=== PATIENT | male | born 1935 | race Caucasian/White ===

== ENCOUNTER 2016-11-28 19:11 | Observation (INO) ==
[2016-11-28] MEDS ORDERED: Acetaminophen 650 MG RECTAL SUPP RC ONE (19:47)
[2016-11-28] MEDS ORDERED: Dexamethasone 4 MG/ML VIAL IVP ONE (19:47)
--- NOTE | 2016-11-28 19:51 | Anesthesia Progress Note ---
Date of Encounter: 11/28/16 Time of Encounter: 19:38 Anesthesia Note - Note Note: 11/28/16 19:38 Called to ER 29 Stat, Upon arrival patient was unresponsive, Respiratory was bagging patient with 100% O2 . O2 saturation maintained in the 90's throughout intubating attempts. First attempted intubation with 7.5 ETT. Using C-scope, Grade I view was unsuccessful. ETT was too large to pass Through Glottic opening. A mass could be seen distal/behind vocal cords. A second attempt with smaller 6.5 ETT was attempted and was successful. tube taped in place, Bilateral breath sounds present and End tidal Co2 present. Oxygen saturations remained in the mid 90'S.
[2016-11-28] MEDS ORDERED: Pantoprazole 80 MG in 0.9 % Sodium Chloride 50 ML IVPB ONE (19:52)
[2016-11-28 19:56] LABS: Bilirubin,Urine Small (Negative); Blood,Urine Moderate (Negative); Clarity,Urine Cloudy (Clear); Color,Urine Dark Yellow (Yellow); Glucose,Urine (UA) Normal (Normal); Ketones,Urine Trace mg/dL (Negative); Leukocyte Esterase,Urine Moderate (Negative); Nitrite,Urine Negative (Negative); PH,Urine 8.5 pH Units (5.0-8.0); Protein,Urine 100 mg/dL (Neg-Trace); Specific Gravity,Urine 1.022 (1.010-1.025); Urobilinogen,Urine Normal (Normal)
[2016-11-28 19:58] LABS: Bacteria,Urine Many per hpf (None-Few); Squamous Epithelial Cell,Urine Many per lpf (None-Few); WBC,Urine 30-50 per hpf (0-3)
[2016-11-28] MEDS ORDERED: Vancomycin 1,500 MG in D5% in Water 250 ML IVPB ONE (20:00)
[2016-11-28] MEDS: Pantoprazole 40 MG in 0.9 % Sodium Chloride Mini Bag 100 ML IVC SCH (20:22)
[2016-11-28] MEDS: 0.9 % Sodium Chloride 1,000 ML IVC SCH ×2 (20:23→20:37)
[2016-11-28 20:44] LABS: Hematocrit 45.2 % (37.5-50.1); Hemoglobin 14.5 g/dL (12.9-16.9); Mean Corpuscular HGB Conc 32.1 g/dL (31.6-35.5); Mean Corpuscular Hemoglobin 28.5 pg (28.0-33.3); Mean Corpuscular Volume 88.8 fL (83.0-100.0); Mean Platelet Volume 10.1 fL (9.4-12.4); Nucleated Red Blood Cells 0.1 /100 WBC (0); Platelet Count 126 K/mcL (140-400); Red Blood Count 5.09 M/mcL (4.19-5.50); Red Cell Distribution Width 13.3 % (11.5-14.5)
[2016-11-28 20:51] LABS: INR 1.3; Prothrombin Time 13.9 Seconds (9.4-12.1)
[2016-11-28 20:53] LABS: Activated Partial Thrombo Time 29.3 Seconds (26.0-36.0)
[2016-11-28 20:58] LABS: Albumin 2.4 g/dL (3.5-5.0); Albumin/Globulin Ratio 0.8 (1.1-2.2); Bilirubin,Direct 0.2 mg/dL (0.0-0.5); Bilirubin,Indirect 0.2 mg/dL (0.0-1.2); Bilirubin,Total 0.4 mg/dL (0.2-1.2); Globulin 2.9 g/dL (2.4-3.5); Magnesium 1.6 mg/dL (1.6-2.6); Phosphorous 1.1 mg/dL (2.3-4.7); Potassium 2.9 mEq/L (3.5-4.5); Total Protein 5.3 g/dL (6.0-8.3)
[2016-11-28] MEDS ORDERED: *HR* Morphine 2 MG/ML SYRINGE IVP ONE (20:59)
[2016-11-28] MEDS ORDERED: *HR* LORazepam 2 MG/ML VIAL IVP ONE ×3 (21:00→23:03)
[2016-11-28 21:01] LABS: Lymphocytes # 0.9 K/mcL (0.6-4.6); Monocytes # 0.3 K/mcL (0.0-1.3); Neutrophils # 13.9 K/mcL (1.6-8.9)
[2016-11-28 21:02] LABS: Platelet Estimate Slight Decrease (Normal)
[2016-11-28] MEDS ORDERED: *HR* Morphine 2 MG/ML SYRINGE IVP PRN ×2 (21:23→22:14)
[2016-11-28] MEDS ORDERED: *HR* Morphine 10 MG/ML VIAL IVP PRN (22:28)
--- NOTE | 2016-11-29 00:22 | Emergency Department Note ---
Disposition Clinical Impression: Respiratory failure Qualifiers: Chronicity: acute Respiratory failure complication: hypoxia Qualified Code(s): J96.01 - Acute respiratory failure with hypoxia Disposition: Home, Self-Care Condition: Critical General Adult HPI - General Chief complaint: ED Fever Stated complaint: SEPTIC Nursing Notes Reviewed: Yes Vital Signs Reviewed: Yes - History of Present Illness HPI Narrative: 81-year-old male with a history of Parkinson's disease as well as other significant comorbidities who has baseline of minimal responsiveness and resides at a local nursing facility. Presents today febrile with concern for aspiration and respiratory failure as well as GI hemorrhage. The patient actually was found to be febrile at a local nursing facility with a temperature of 105. He had rattling coarse lung sounds and was vomiting GI hemorrhage contents. On arrival here he was unresponsive, to Neck with poor respiratory effort and pending overt respiratory failure. He was a DNR [facility]. His POA was here and present and stated that he was with intubation. Pain Scale: 0 - Related Data Allergies Allergy/AdvReac Type Severity Reaction Status Date / Time No Known Allergies Allergy Verified 11/28/16 19:14 All systems ED: reviewed and negative except as stated. Past Medical History - Past Medical History Medical history: Reports: diabetes, hyperlipidemia, hypertension, myocardial infarction Psychiatric history: Reports: no psych history - Social History Smoking Status: Unknown if ever smoked Smokeless Tobacco Status: No Alcohol use: Reports: unknown Drug use: Reports: unknown Physical Exam Unresponsive GCS 3 Gurgling respirations with blood in the oropharynx Tachycardic rate Lungs are diminished, rhonchi bilaterally, hypoxia Abdomen is soft and nontender Extremities are warm and dry The patient has no purposeful movement and is unresponsive - ENT ENT exam: normal exam - Neck Neck exam: Present: normal inspection - Respiratory Respiratory exam: Present: accessory muscle use Course Vital Signs Temperature 101.3 F H 11/28/16 19:16 Pulse Rate 107 11/28/16 19:16 Respiratory Rate 12 11/28/16 19:16 Blood Pressure 103/54 11/28/16 19:16 O2 Sat by Pulse Oximetry 91 11/28/16 19:16 Temperature 101.3 F H 11/28/16 19:16 Pulse Rate 88 11/28/16 23:56 Respiratory Rate 12 11/28/16 23:24 Blood Pressure 78/46 11/28/16 23:56 O2 Sat by Pulse Oximetry 90 11/28/16 23:56 Oxygen Delivery Oxygen Delivery Room Air Medical Decision Making - MDM Narrative Medical decision making narrative: I did have a discussion with the family about their personal wishes regarding advanced airway placement and resuscitation and cooperatively they decided that they would like to proceed with airway measures. The patient did have hypotension and ultimately it was decided to pursue rapid sequence intubation with ketamine as well as rocuronium. Ketamine was utilized as an induction agent as the patient had signs of septic shock. I did not want Parris intubation hypotension. Ultimately after administration of rocuronium as well as ketamine we proceeded with oxygenation with bag mask ventilation. The patient was easily ventilated. Blood was suctioned from the posterior oropharynx. The patient's oxygenation was 100%. Blood scope in addition attempt was performed with direct visualization and grade 1 view however attempts to pass an endotracheal tube were unsuccessful due to her underlying subglottic mass which is visualized on kaleidoscope camera. After 2 attempts at direct intubation without any hypoxia utilizing the kaleidoscope and after attempts administration of both glucagon and lidocaine directly at the vocal cords and attempt to ease vocal cord spasm I did request anesthesia to the bedside in a stat fashion and proceeded to fall the difficult airway algorithm. We did attempt to place a bougie after attempts at utilizing smaller endotracheal tubes and even a bougie would not pass. Additionally we tried manipulation of the endotracheal tube, utilizing extremely small endotracheal tube and secondary doses of paralytics. 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 A cric care was summoned to the bedside and I requested additional ER attending backup. Anesthesia was present at the bedside and their initial attempts to place an inch tracheal tube were not successful. They recognized also that there was evidence of subglottic mass. After manipulation of the trachea with pressure and by manipulating the mass anesthesia was able to place a 6.0 endotracheal tube. The patient had no hypoxia during induction or intubation attempts. Broad-spectrum antibiotics were initiated. Pancultures are obtained. Chest x-ray shows multilobar pneumonia. After prolonged discussion with the family they proceeded with palliative decisions. They requested a terminal extubation. The power of collections attorney was present as well as multiple family members all requesting terminal extubation. They feel the patient suffered long enough. The patient was terminally extubated and with the help of on-call hospice I did lay's palliative orders. We will proceed with admission for palliative services. Prior to terminal extubation and prior to comfort care decisions I did administer Decadron for presumed subglottic swelling. The family did refuse advanced imaging. The patient be admitted for comfort care and for hospice efforts. - Medical Records Medical records reviewed: Yes I reviewed the patient's medical records. - Lab Data Lab results reviewed: Yes I reviewed the patient's lab results. Result diagrams: 11/28/16 20:32 11/28/16 20:32 Lab Results 11/28/16 11/28/16 11/28/16 Range/Units 19:15 19:42 20:32 WBC (4.3-11.1) K/mcL RBC (4.19-5.50) M/mcL Hgb (12.9-16.9) g/dL Hct (37.5-50.1) % MCV (83.0-100.0) fL MCH (28.0-33.3) pg MCHC (31.6-35.5) g/dL RDW (11.5-14.5) % Plt Count (140-400) K/mcL MPV (9.4-12.4) fL Seg Neutrophils % % Band Neutrophils % (0-4) % Lymphocytes % % Monocytes % % Neutrophils # (1.6-8.9) K/mcL Lymphocytes # (0.6-4.6) K/mcL Monocytes # (0.0-1.3) K/mcL Nucleated RBCs/100 WBC (0) /100 WBC Platelet Estimate (Normal) PT (9.4-12.1) Seconds INR APTT (26.0-36.0) Seconds Sodium (136-145) mEq/L Potassium (3.5-4.5) mEq/L Chloride (98-109) mEq/L Carbon Dioxide (19-29) mEq/L BUN (8-26) mg/dL Creatinine (0.72-1.25) mg/dL Est GFR ( Amer) (> 60) Est GFR (Non-Af Amer) (> 60) BUN/Creatinine Ratio (6-26) Glucose (70-99) mg/dL POC Glucose 146 H (58-89) Calculated Osmolality (280-300) Lactic Acid (0.5-2.2) mmol/L Calcium (8.6-10.8) mg/dL Phosphorus (2.3-4.7) mg/dL Magnesium (1.6-2.6) mg/dL Total Bilirubin (0.2-1.2) mg/dL Direct Bilirubin (0.0-0.5) mg/dL Indirect Bilirubin (0.0-1.2) mg/dL AST (5-34) Units/L ALT (0-55) Units/L Alkaline Phosphatase (38-126) Units/L Troponin I (0-0.03) ng/mL B-Natriuretic Peptide 294 H (0-100) pg/mL Serum Total Protein (6.0-8.3) g/dL Albumin (3.5-5.0) g/dL Globulin (2.4-3.5) g/dL Albumin/Globulin Ratio (1.1-2.2) Urine Color Dark Yellow (Yellow) Urine Clarity Cloudy A (Clear) Urine pH 8.5 H (5.0-8.0) pH Units Ur Specific [place] 1.022 (1.010-1.025) Urine Protein 100 H (Neg-Trace) mg/dL Urine Glucose (UA) Normal (Normal) mg/dL Urine Ketones Trace H (Negative) mg/dL Urine Blood Moderate H (Negative) Urine Nitrite Negative (Negative) Urine Bilirubin Small H (Negative) Urine Urobilinogen Normal (Normal) mg/dL Ur Leukocyte Esterase Moderate H (Negative) Urine Microscopic RBC 5-15 H (0-3) per hpf Urine Microscopic WBC 30-50 H (0-3) per hpf Ur Squamous Epith Cells Many H (None-Few) per lpf Urine Bacteria Many H (None-Few) per hpf Hyaline Casts Test Not Performed Ur Culture Indicated? YES A (NO) Blood Type Antibody Screen 11/28/16 11/28/16 11/28/16 Range/Units 20:32 20:32 20:32 WBC 15.1 H (4.3-11.1) K/mcL RBC 5.09 (4.19-5.50) M/mcL Hgb 14.5 (12.9-16.9) g/dL Hct 45.2 (37.5-50.1) % MCV 88.8 (83.0-100.0) fL MCH 28.5 (28.0-33.3) pg MCHC 32.1 (31.6-35.5) g/dL RDW 13.3 (11.5-14.5) % Plt Count 126 L (140-400) K/mcL MPV 10.1 (9.4-12.4) fL Seg Neutrophils % 74.0 % Band Neutrophils % 18.0 H (0-4) % Lymphocytes % 6.0 % Monocytes % 2.0 % Neutrophils # 13.9 H (1.6-8.9) K/mcL Lymphocytes # 0.9 (0.6-4.6) K/mcL Monocytes # 0.3 (0.0-1.3) K/mcL Nucleated RBCs/100 WBC 0.1 H (0) /100 WBC Platelet Estimate Slight Decrease L (Normal) PT 13.9 H (9.4-12.1) Seconds INR 1.3 APTT 29.3 (26.0-36.0) Seconds Sodium 142 (136-145) mEq/L Potassium 2.9 L (3.5-4.5) mEq/L Chloride 110 H (98-109) mEq/L Carbon Dioxide 21 (19-29) mEq/L BUN 25 (8-26) mg/dL Creatinine 1.89 H (0.72-1.25) mg/dL Est GFR ( Amer) 42 L (> 60) Est GFR (Non-Af Amer) 34 L (> 60) BUN/Creatinine Ratio 13 (6-26) Glucose 165 H (70-99) mg/dL POC Glucose (58-89) Calculated Osmolality 302 H (280-300) Lactic Acid (0.5-2.2) mmol/L Calcium 8.0 L (8.6-10.8) mg/dL Phosphorus 1.1 L (2.3-4.7) mg/dL Magnesium 1.6 (1.6-2.6) mg/dL Total Bilirubin 0.4 (0.2-1.2) mg/dL Direct Bilirubin 0.2 (0.0-0.5) mg/dL Indirect Bilirubin 0.2 (0.0-1.2) mg/dL AST 24 (5-34) Units/L ALT 14 (0-55) Units/L Alkaline Phosphatase 95 (38-126) Units/L Troponin I (0-0.03) ng/mL B-Natriuretic Peptide (0-100) pg/mL Serum Total Protein 5.3 L (6.0-8.3) g/dL Albumin 2.4 L (3.5-5.0) g/dL Globulin 2.9 (2.4-3.5) g/dL Albumin/Globulin Ratio 0.8 L (1.1-2.2) Urine Color (Yellow) Urine Clarity (Clear) Urine pH (5.0-8.0) pH Units Ur Specific [place] (1.010-1.025) Urine Protein (Neg-Trace) mg/dL Urine Glucose (UA) (Normal) mg/dL Urine Ketones (Negative) mg/dL Urine Blood (Negative) Urine Nitrite (Negative) Urine Bilirubin (Negative) Urine Urobilinogen (Normal) mg/dL Ur Leukocyte Esterase (Negative) Urine Microscopic RBC (0-3) per hpf Urine Microscopic WBC (0-3) per hpf Ur Squamous Epith Cells (None-Few) per lpf Urine Bacteria (None-Few) per hpf Hyaline Casts Ur Culture Indicated? (NO) Blood Type Antibody Screen 11/28/16 11/28/16 11/28/16 Range/Units 20:32 20:32 20:32 WBC (4.3-11.1) K/mcL RBC (4.19-5.50) M/mcL Hgb (12.9-16.9) g/dL Hct (37.5-50.1) % MCV (83.0-100.0) fL MCH (28.0-33.3) pg MCHC (31.6-35.5) g/dL RDW (11.5-14.5) % Plt Count (140-400) K/mcL MPV (9.4-12.4) fL Seg Neutrophils % % Band Neutrophils % (0-4) % Lymphocytes % % Monocytes % % Neutrophils # (1.6-8.9) K/mcL Lymphocytes # (0.6-4.6) K/mcL Monocytes # (0.0-1.3) K/mcL Nucleated RBCs/100 WBC (0) /100 WBC Platelet Estimate (Normal) PT (9.4-12.1) Seconds INR APTT (26.0-36.0) Seconds Sodium (136-145) mEq/L Potassium (3.5-4.5) mEq/L Chloride (98-109) mEq/L Carbon Dioxide (19-29) mEq/L BUN (8-26) mg/dL Creatinine (0.72-1.25) mg/dL Est GFR ( Amer) (> 60) Est GFR (Non-Af Amer) (> 60) BUN/Creatinine Ratio (6-26) Glucose (70-99) mg/dL POC Glucose (58-89) Calculated Osmolality (280-300) Lactic Acid 4.8 H* (0.5-2.2) mmol/L Calcium (8.6-10.8) mg/dL Phosphorus (2.3-4.7) mg/dL Magnesium (1.6-2.6) mg/dL Total Bilirubin (0.2-1.2) mg/dL Direct Bilirubin (0.0-0.5) mg/dL Indirect Bilirubin (0.0-1.2) mg/dL AST (5-34) Units/L ALT (0-55) Units/L Alkaline Phosphatase (38-126) Units/L Troponin I 0.06 H* (0-0.03) ng/mL B-Natriuretic Peptide (0-100) pg/mL Serum Total Protein (6.0-8.3) g/dL Albumin (3.5-5.0) g/dL Globulin (2.4-3.5) g/dL Albumin/Globulin Ratio (1.1-2.2) Urine Color (Yellow) Urine Clarity (Clear) Urine pH (5.0-8.0) pH Units Ur Specific [place] (1.010-1.025) Urine Protein (Neg-Trace) mg/dL Urine Glucose (UA) (Normal) mg/dL Urine Ketones (Negative) mg/dL Urine Blood (Negative) Urine Nitrite (Negative) Urine Bilirubin (Negative) Urine Urobilinogen (Normal) mg/dL Ur Leukocyte Esterase (Negative) Urine Microscopic RBC (0-3) per hpf Urine Microscopic WBC (0-3) per hpf Ur Squamous Epith Cells (None-Few) per lpf Urine Bacteria (None-Few) per hpf Hyaline Casts Ur Culture Indicated? (NO) Blood Type O NEGATIVE Antibody Screen NEGATIVE - Radiology Data Radiology results reviewed: Yes I reviewed the patient's radiology results. - EKG Data EKG #1 EKG results narrative: EKG shows sinus tachycardia with nonspecific ST segment changes Critical Care Time Total Critical Care Time: 31 Attestation: Greater than 31 minutes was spent participating in the active resuscitation of this acutely ill and dying male of GI hemorrhage and respiratory failure. Vehicle care time was excluding billable procedures
--- NOTE | 2016-11-29 00:26 | Emergency Department Note ---
Disposition Clinical Impression: Respiratory failure Disposition: Home, Self-Care Condition: Critical General Adult HPI - General Chief complaint: ED Fever Stated complaint: SEPTIC - History of Present Illness Pain Scale: 0 - Related Data Allergies Allergy/AdvReac Type Severity Reaction Status Date / Time No Known Allergies Allergy Verified 11/28/16 19:14 Past Medical History - Past Medical History Medical history: Reports: diabetes, hyperlipidemia, hypertension, myocardial infarction Psychiatric history: Reports: no psych history - Social History Smoking Status: Unknown if ever smoked Smokeless Tobacco Status: No Alcohol use: Reports: unknown Drug use: Reports: unknown Course Vital Signs Temperature 101.3 F H 11/28/16 19:16 Pulse Rate 107 11/28/16 19:16 Respiratory Rate 12 11/28/16 19:16 Blood Pressure 103/54 11/28/16 19:16 O2 Sat by Pulse Oximetry 91 11/28/16 19:16 Temperature 96.9 F L 11/29/16 00:55 Pulse Rate 84 11/29/16 00:55 Respiratory Rate 8 11/29/16 00:55 Blood Pressure 74/47 11/29/16 00:55 O2 Sat by Pulse Oximetry 81 11/29/16 00:55 Oxygen Delivery Oxygen Delivery Room Air Procedures - Intubation Time out performed: No sedative: Etomidate paralytic: Succinylcholine Laryngoscope: fiber optic video scope Assist Device Used: Bougie ET Tube Size: 7.5 ET Tube Uncuffed: Yes Intubation Complications: unable to intubate Additional Comments: Emergent intubation. Patient was initially sedated with ketamine. And etomidate. Patient was easy to ventilate with a bag valve mask. Cords were visualized with the glide scope. Mouth was suctioned due to emesis. The ET tube was unable to pass through the vocal cords. This was tried several times with no success. Lidocaine was was placed down the ET tube. The ET tube still would not pass. The tube was moved into different locations and chronic pressure was used with no advancement. There appeared to be a mass directly past the vocal cords. Succinylcholine was given to attempt to help facilitate with paralysis. However patient was not moving at that time did not appear to have any muscular tone. During intubation attempts patient's oxygen saturation never dropped below the 90s level. We were able to ventilate appropriately with the bag valve mask with no difficulty. We attempted to pass a bougie through patient's vocal cords with no success. Anesthesia was paged to come assist. After 2 or 3 attempts they were able to place a 6-1/2 ET tube. The patient had equal bilateral lung sounds at that time. Medical Decision Making - Lab Data Result diagrams: 11/28/16 20:32 11/28/16 20:32 Lab Results 11/28/16 11/28/16 11/28/16 Range/Units 19:15 19:42 20:32 WBC (4.3-11.1) K/mcL RBC (4.19-5.50) M/mcL Hgb (12.9-16.9) g/dL Hct (37.5-50.1) % MCV (83.0-100.0) fL MCH (28.0-33.3) pg MCHC (31.6-35.5) g/dL RDW (11.5-14.5) % Plt Count (140-400) K/mcL MPV (9.4-12.4) fL Seg Neutrophils % % Band Neutrophils % (0-4) % Lymphocytes % % Monocytes % % Neutrophils # (1.6-8.9) K/mcL Lymphocytes # (0.6-4.6) K/mcL Monocytes # (0.0-1.3) K/mcL Nucleated RBCs/100 WBC (0) /100 WBC Platelet Estimate (Normal) PT (9.4-12.1) Seconds INR APTT (26.0-36.0) Seconds Sodium (136-145) mEq/L Potassium (3.5-4.5) mEq/L Chloride (98-109) mEq/L Carbon Dioxide (19-29) mEq/L BUN (8-26) mg/dL Creatinine (0.72-1.25) mg/dL Est GFR ( Amer) (> 60) Est GFR (Non-Af Amer) (> 60) BUN/Creatinine Ratio (6-26) Glucose (70-99) mg/dL POC Glucose 146 H (58-89) Calculated Osmolality (280-300) Lactic Acid (0.5-2.2) mmol/L Calcium (8.6-10.8) mg/dL Phosphorus (2.3-4.7) mg/dL Magnesium (1.6-2.6) mg/dL Total Bilirubin (0.2-1.2) mg/dL Direct Bilirubin (0.0-0.5) mg/dL Indirect Bilirubin (0.0-1.2) mg/dL AST (5-34) Units/L ALT (0-55) Units/L Alkaline Phosphatase (38-126) Units/L Troponin I (0-0.03) ng/mL B-Natriuretic Peptide 294 H (0-100) pg/mL Serum Total Protein (6.0-8.3) g/dL Albumin (3.5-5.0) g/dL Globulin (2.4-3.5) g/dL Albumin/Globulin Ratio (1.1-2.2) Urine Color Dark Yellow (Yellow) Urine Clarity Cloudy A (Clear) Urine pH 8.5 H (5.0-8.0) pH Units Ur Specific [place] 1.022 (1.010-1.025) Urine Protein 100 H (Neg-Trace) mg/dL Urine Glucose (UA) Normal (Normal) mg/dL Urine Ketones Trace H (Negative) mg/dL Urine Blood Moderate H (Negative) Urine Nitrite Negative (Negative) Urine Bilirubin Small H (Negative) Urine Urobilinogen Normal (Normal) mg/dL Ur Leukocyte Esterase Moderate H (Negative) Urine Microscopic RBC 5-15 H (0-3) per hpf Urine Microscopic WBC 30-50 H (0-3) per hpf Ur Squamous Epith Cells Many H (None-Few) per lpf Urine Bacteria Many H (None-Few) per hpf Hyaline Casts Test Not Performed Ur Culture Indicated? YES A (NO) Blood Type Antibody Screen 11/28/16 11/28/16 11/28/16 Range/Units 20:32 20:32 20:32 WBC 15.1 H (4.3-11.1) K/mcL RBC 5.09 (4.19-5.50) M/mcL Hgb 14.5 (12.9-16.9) g/dL Hct 45.2 (37.5-50.1) % MCV 88.8 (83.0-100.0) fL MCH 28.5 (28.0-33.3) pg MCHC 32.1 (31.6-35.5) g/dL RDW 13.3 (11.5-14.5) % Plt Count 126 L (140-400) K/mcL MPV 10.1 (9.4-12.4) fL Seg Neutrophils % 74.0 % Band Neutrophils % 18.0 H (0-4) % Lymphocytes % 6.0 % Monocytes % 2.0 % Neutrophils # 13.9 H (1.6-8.9) K/mcL Lymphocytes # 0.9 (0.6-4.6) K/mcL Monocytes # 0.3 (0.0-1.3) K/mcL Nucleated RBCs/100 WBC 0.1 H (0) /100 WBC Platelet Estimate Slight Decrease L (Normal) PT 13.9 H (9.4-12.1) Seconds INR 1.3 APTT 29.3 (26.0-36.0) Seconds Sodium 142 (136-145) mEq/L Potassium 2.9 L (3.5-4.5) mEq/L Chloride 110 H (98-109) mEq/L Carbon Dioxide 21 (19-29) mEq/L BUN 25 (8-26) mg/dL Creatinine 1.89 H (0.72-1.25) mg/dL Est GFR ( Amer) 42 L (> 60) Est GFR (Non-Af Amer) 34 L (> 60) BUN/Creatinine Ratio 13 (6-26) Glucose 165 H (70-99) mg/dL POC Glucose (58-89) Calculated Osmolality 302 H (280-300) Lactic Acid (0.5-2.2) mmol/L Calcium 8.0 L (8.6-10.8) mg/dL Phosphorus 1.1 L (2.3-4.7) mg/dL Magnesium 1.6 (1.6-2.6) mg/dL Total Bilirubin 0.4 (0.2-1.2) mg/dL Direct Bilirubin 0.2 (0.0-0.5) mg/dL Indirect Bilirubin 0.2 (0.0-1.2) mg/dL AST 24 (5-34) Units/L ALT 14 (0-55) Units/L Alkaline Phosphatase 95 (38-126) Units/L Troponin I (0-0.03) ng/mL B-Natriuretic Peptide (0-100) pg/mL Serum Total Protein 5.3 L (6.0-8.3) g/dL Albumin 2.4 L (3.5-5.0) g/dL Globulin 2.9 (2.4-3.5) g/dL Albumin/Globulin Ratio 0.8 L (1.1-2.2) Urine Color (Yellow) Urine Clarity (Clear) Urine pH (5.0-8.0) pH Units Ur Specific [place] (1.010-1.025) Urine Protein (Neg-Trace) mg/dL Urine Glucose (UA) (Normal) mg/dL Urine Ketones (Negative) mg/dL Urine Blood (Negative) Urine Nitrite (Negative) Urine Bilirubin (Negative) Urine Urobilinogen (Normal) mg/dL Ur Leukocyte Esterase (Negative) Urine Microscopic RBC (0-3) per hpf Urine Microscopic WBC (0-3) per hpf Ur Squamous Epith Cells (None-Few) per lpf Urine Bacteria (None-Few) per hpf Hyaline Casts Ur Culture Indicated? (NO) Blood Type Antibody Screen 11/28/16 11/28/16 11/28/16 Range/Units 20:32 20:32 20:32 WBC (4.3-11.1) K/mcL RBC (4.19-5.50) M/mcL Hgb (12.9-16.9) g/dL Hct (37.5-50.1) % MCV (83.0-100.0) fL MCH (28.0-33.3) pg MCHC (31.6-35.5) g/dL RDW (11.5-14.5) % Plt Count (140-400) K/mcL MPV (9.4-12.4) fL Seg Neutrophils % % Band Neutrophils % (0-4) % Lymphocytes % % Monocytes % % Neutrophils # (1.6-8.9) K/mcL Lymphocytes # (0.6-4.6) K/mcL Monocytes # (0.0-1.3) K/mcL Nucleated RBCs/100 WBC (0) /100 WBC Platelet Estimate (Normal) PT (9.4-12.1) Seconds INR APTT (26.0-36.0) Seconds Sodium (136-145) mEq/L Potassium (3.5-4.5) mEq/L Chloride (98-109) mEq/L Carbon Dioxide (19-29) mEq/L BUN (8-26) mg/dL Creatinine (0.72-1.25) mg/dL Est GFR ( Amer) (> 60) Est GFR (Non-Af Amer) (> 60) BUN/Creatinine Ratio (6-26) Glucose (70-99) mg/dL POC Glucose (58-89) Calculated Osmolality (280-300) Lactic Acid 4.8 H* (0.5-2.2) mmol/L Calcium (8.6-10.8) mg/dL Phosphorus (2.3-4.7) mg/dL Magnesium (1.6-2.6) mg/dL Total Bilirubin (0.2-1.2) mg/dL Direct Bilirubin (0.0-0.5) mg/dL Indirect Bilirubin (0.0-1.2) mg/dL AST (5-34) Units/L ALT (0-55) Units/L Alkaline Phosphatase (38-126) Units/L Troponin I 0.06 H* (0-0.03) ng/mL B-Natriuretic Peptide (0-100) pg/mL Serum Total Protein (6.0-8.3) g/dL Albumin (3.5-5.0) g/dL Globulin (2.4-3.5) g/dL Albumin/Globulin Ratio (1.1-2.2) Urine Color (Yellow) Urine Clarity (Clear) Urine pH (5.0-8.0) pH Units Ur Specific [place] (1.010-1.025) Urine Protein (Neg-Trace) mg/dL Urine Glucose (UA) (Normal) mg/dL Urine Ketones (Negative) mg/dL Urine Blood (Negative) Urine Nitrite (Negative) Urine Bilirubin (Negative) Urine Urobilinogen (Normal) mg/dL Ur Leukocyte Esterase (Negative) Urine Microscopic RBC (0-3) per hpf Urine Microscopic WBC (0-3) per hpf Ur Squamous Epith Cells (None-Few) per lpf Urine Bacteria (None-Few) per hpf Hyaline Casts Ur Culture Indicated? (NO) Blood Type O NEGATIVE Antibody Screen NEGATIVE
[2016-11-29 00:56] VITALS: BP 74/47
[2016-11-29] MEDS ORDERED: Naloxone 0.4 MG/ML INJ IVP PRN (01:00)
--- NOTE | 2016-11-29 01:17 | Internal Med History&Physical ---
Date of Encounter: 11/29/16 Time of Encounter: 00:10 Assessment and Plan (1) Goals of care, counseling/discussion Current visit: Yes Status: Acute Patient has a family requested hospice care. Will keep patient on comfort care. Pain management. Symptomatic treatment. Consult palliative care in a.m. (2) Respiratory failure Current visit: Yes Status: Acute Due to pneumonia. No further treatment per family request. Qualifiers: Chronicity: acute Respiratory failure complication: hypoxia Qualified Code(s): J96.01 - Acute respiratory failure with hypoxia Internal Medicine - H&P: HPI Chief complaint: Fever and altered mental status Admitted From: Long-term Nursing Facility Plans for Post Hospital Care: at Medical Facility History of present illness: Mr. Nj is a 81 year old male who was sent to ER from intermediate for fever and altered mental status. He has a minimal response when he presents to ER. Chest x-ray shows pneumonia. Intubation has been done in emergency room. Finally, patient's family and guardian requested palliative care and comfort care only. Terminal extubation has been done by ER doctor per family request. Patient is admitted for hospice care. I discussed with patient's guardian and also his daughter Ms Ruslan Charlton, and was confirmed patient's family just want comfort care, now antibiotic, no IV fluid. Will give patient pain control and symptoms treatment. Patient was placed on DNR CC. Past Med Surg Social Fam HX - Past Medical History Medical history: diabetes, hyperlipidemia, hypertension, myocardial infarction Psychiatric history: no psych history - Social History Smoking Status: Unknown if ever smoked Smokeless Tobacco Status: No Alcohol use: unknown Drug use: unknown Internal Medicine - H&P: Meds Allergies No Known Allergies Allergy (Verified 11/28/16 19:14) All Systems PM: A 10-system review of systems was performed and is negative for pertinent findings except as documented above in the HPI. - Constitutional Vitals: Temp Pulse Resp BP Pulse Ox 96.9 F L 84 8 74/47 81 11/29/16 00:55 11/29/16 00:55 11/29/16 00:55 11/29/16 00:55 11/29/16 00:55 General appearance: Present: A&O X 0 Exam: Nonresponsive - Head Head exam: Present: atraumatic, normocephalic - Eye Eye exam: Present: PERRL, conjuntiva pink, sclera anicteric Pupils: Present: PERRL - Neck Neck exam general surgery: Present: supple, trachea midline. Absent: lymphadenopathy - Respiratory Respiratory exam: Present: CTAB, rhonchi, wheezes. Absent: accessory muscle use , rales Additional comments: Slow and shallow breathing, wheezes and rhonchi bilaterally - Cardiovascular Cardiovascular exam: Present: RRR, +S1, +S2. Absent: diastolic murmur, gallop, rubs, systolic murmur - GI/Abdominal GI/Abdominal exam: Present: normal bowel sounds, soft, no peritoneal signs. Absent: distended, tenderness - Extremities Exam Extremities exam: Present: warm, radial pulses palpable and symetrical. Absent : calf tenderness, cyanotic, pedal edema - Neurological Exam Neurological exam: Present: CN II-XII intact, oriented X3, no focal deficits. Absent: pronater drift, facial droop, speech deficit - Skin Skin exam: Present: dry, intact Internal Med - H&P Results - Labs CBC & Chem 7: 11/28/16 20:32 11/28/16 20:32 - VTE Reasons for not Prescribing Prophylaxis: Refused by patient
[2016-11-29] MEDS: Atropine Sulfate 1% 40 DROP/2 ML BOTTLE SL PRN ×3 (01:38→05:48)
[2016-11-29] MEDS: Pantoprazole 40 MG in 0.9 % Sodium Chloride Mini Bag 100 ML IVC SCH ×2 (01:39→05:49)
[2016-11-29 07:26] LABS: Acinetobacter baumannii by PCR Not Detected (Not Detect); Candida albicans by PCR Not Detected (Not Detect); Candida glabrata by PCR Not Detected (Not Detect); Candida krusei by PCR Not Detected (Not Detect); Candida parapsilosis by PCR Not Detected (Not Detect); Candida tropicalis by PCR Not Detected (Not Detect); Enterococcus by PCR Not Detected (Not Detect); Escherichia coli by PCR Not Detected (Not Detect); Klebsiella oxytoca by PCR Not Detected (Not Detect); Klebsiella pneumoniae by PCR Not Detected (Not Detect); Pseudomonas aeruginosa by PCR Not Detected (Not Detect); Serratia marcescens by PCR Not Detected (Not Detect); Staphylococcus aureus by PCR Not Detected (Not Detect); Streptococcus agalactiae(B)PCR Not Detected (Not Detect); Streptococcus by PCR Not Detected (Not Detect); Streptococcus pneumoniae PCR Not Detected (Not Detect); Streptococcus pyogenes (A) PCR Not Detected (Not Detect); blaKPC Carbapenem-Resist Gene Not Detected (Not Detect)
[2016-11-29] MEDS ORDERED: *HR* Succinylcholine 200 MG/10 ML VIAL IVP ONE (07:39)
--- NOTE | 2016-11-29 09:44 | Palliative - Consult Note ---
<David Ibarra M - Last Filed: 11/29/16 09:49> Date of Encounter: 11/29/16 Time of Encounter: 09:36 - Assessment and Plan (1) Goals of care, counseling/discussion Status: Acute Assessment and plan: Patient's CODE STATUS is DNR CC. Patient was terminally extubated in the emergency department. Family's initial impression was that patient would have minutes to hours to live. Patient has exceeded these expectations but the family's understanding of disease process has been addressed and they understand that he may even stabilize. Goals of care at this time are to keep the patient comfortable until he passes. The patient will be transitioned over to inpatient hospice. (2) Respiratory failure Status: Acute Assessment and plan: Multifocal pneumonia to be treated with comfort care and no IV fluids or antibiotics per family's wishes. Qualifiers: Chronicity: acute Respiratory failure complication: hypoxia Qualified Code(s): J96.01 - Acute respiratory failure with hypoxia Palliative-CN HPI - Data of Consult Patient: new to practice Consult date: 11/29/16 Requesting Physician: Luz Marina Perez MD Primary Care Provider: PCP NO - Consult Narrative Palliative Care/Comfort Measures: Hospice care Reason for consult: consider for hospice care History of present illness: Mr. Nj is an 81-year-old male who was admitted overnight to the hospitalist service. Patient presented from a [facility] to the emergency department with fever, altered mental status, respiratory distress. Patient is minimally responsive when he presented to the ER with chest x-ray concerning for pneumonia. Patient underwent intubation. Patient's guardian /family arrived and discussed wish for comfort care. It appears that significant conversations were had a nose decided the patient was to be terminally extubated. Currently the patient is resting in bed minimally responsive with occasional apneic episodes. Discussed overall course with family. They would like to have the patient admitted to hospice service. They do not want interventions including antibiotics or fluids. CC: Luz Marina Perez MD Past Med Surg Social Fam HX - Past Medical History Medical history: diabetes, hyperlipidemia, hypertension, myocardial infarction Psychiatric history: no psych history - Social History Smoking Status: Unknown if ever smoked Smokeless Tobacco Status: No Alcohol use: unknown Drug use: unknown Medications and Allergies Aspirin 81 mg PO DAILY 11/29/16 [History] Cyclosporine [Restasis] 1 drop BOTH EYES BID 11/29/16 [History] Docusate [Colace] 100 mg PO BID 11/29/16 [History] Erythromycin OPTH Oint 1 appl BOTH EYES TID 11/29/16 [History] Folic Acid 1 mg PO DAILY 11/29/16 [History] Furosemide [Lasix] 20 mg PO DAILY 11/29/16 [History] Loratadine [Allergy Relief] 10 mg PO DAILY 11/29/16 [History] Multivitamin [One Daily Essential] 1 tab PO DAILY 11/29/16 [History] Allergies No Known Allergies Allergy (Verified 11/28/16 19:14) ROS unobtainable: due to mental status Palliative Care-Exam - Constitutional Vitals: Temp Pulse Resp BP Pulse Ox 96.9 F L 84 8 74/47 81 11/29/16 00:55 11/29/16 00:55 11/29/16 00:55 11/29/16 00:55 11/29/16 00:55 Exam: General: Patient with decreased respirations, overtly rhonchorous breath sounds. Occasional episodes of apnea. Minimally responsive. Head: atraumatic, normocephalic HEENT: Dry mucous membranes Cardiovascular: Regular rate and rhythm. No murmurs rubs or gallops. Respiratory diffuse rhonchorous breath sounds, wheezing, rales. Abdomen: Soft nontender palpation, no guarding, no rebound Extremities: No edema, no deformities, no mottling Skin: No mottling, cool, dry, no evidence of rash or abrasion. Neuro: Eyes closed, no response to mild painful stimuli. Internal Medicine - CN: Reslt - Labs CBC & Chem 7: 11/28/16 20:32 11/28/16 20:32 - ABG Interpretation ABG results: PT/INR, D-dimer PT 13.9 Seconds (9.4-12.1) H 11/28/16 20:32 Consult Discharge Plan - Plan Referrals: NO,PCP [Primary Care Provider] - Palliative Quality Palliative Quality: Screen for Code Status: Yes, Screen for Goals of Care: Yes, Screen for Pain: Yes, If Pain Regimen Started, Initiate Bowel Regimen: Yes, Screen for Nausea/Vomitting: Yes Code Status: 11/29/16 01:00 Resuscitation Status: Active [RES] Routine Comment: Resuscitation Status: DNR-Comfort Care <Pal Kessler - Last Filed: 11/29/16 11:24> Date of Encounter: 11/29/16 Palliative-CN HPI - Data of Consult Requesting Physician: Luz Marina Perez MD Primary Care Provider: PCP NO - Consult Narrative History of present illness: Mr. Nj is a 81 year old male CC: Luz Marina Perez MD Palliative Care-Exam - Constitutional Vitals: Temp Pulse Resp BP Pulse Ox 96.9 F L 84 8 74/47 81 11/29/16 00:55 11/29/16 00:55 11/29/16 00:55 11/29/16 00:55 11/29/16 00:55 Internal Medicine - CN: Reslt - Labs CBC & Chem 7: 11/28/16 20:32 11/28/16 20:32 - ABG Interpretation ABG results: PT/INR, D-dimer PT 13.9 Seconds (9.4-12.1) H 11/28/16 20:32 - Attending Attestation I examined this patient and my medical decision-making was reviewed with the LOSS CONTROL TECHNICIAN/PA/Advanced Practice Nurse/Resident Physician. I agree with the documented findings, disposition and treatment plan as described except to the extent set forth below. d/w family they understand could last if so cannot stay on GIP indefinitely. However he does appear to be finding rapidly and I do not expect that he will last more than 48-72 hours. Patient will remain on GIP for symptomatic management of end of life secondary to acute infection and end-stage Parkinson' s disease. Palliative Quality Code Status: 11/29/16 01:00 Resuscitation Status: Active [RES] Routine Comment: Resuscitation Status: DNR-Comfort Care
--- NOTE | 2016-11-29 09:45 | Discharge Summary ---
Date of Encounter: 11/29/16 Time of Encounter: 09:15 - Discharge Diagnosis (1) Severe sepsis Priority: Primary Status: Acute (2) Pneumonia Priority: Primary Status: Acute Qualifiers: Pneumonia type: due to other aerobic Gram-negative bacteria Laterality: bilateral Lung location: unspecified part of lung Qualified Code(s): J15.6 - Pneumonia due to other aerobic Gram-negative bacteria (3) Acute encephalopathy Priority: Primary Status: Acute (4) Dementia Priority: Secondary Status: Chronic Qualifiers: Dementia type: Alzheimer's disease Alzheimer's disease onset: late-onset Dementia behavioral disturbance: without behavioral disturbance Qualified Code (s): G30.1 - Alzheimer's disease with late onset; F02.80 - Dementia in other diseases classified elsewhere without behavioral disturbance (5) Respiratory failure Priority: Primary Status: Acute Qualifiers: Chronicity: acute Respiratory failure complication: hypoxia Qualified Code(s): J96.01 - Acute respiratory failure with hypoxia - Discharge Medications Home Medications: Aspirin 81 mg PO DAILY 11/29/16 [History] Cyclosporine [Restasis] 1 drop BOTH EYES BID 11/29/16 [History] Docusate [Colace] 100 mg PO BID 11/29/16 [History] Erythromycin OPTH Oint 1 appl BOTH EYES TID 11/29/16 [History] Folic Acid 1 mg PO DAILY 11/29/16 [History] Furosemide [Lasix] 20 mg PO DAILY 11/29/16 [History] Loratadine [Allergy Relief] 10 mg PO DAILY 11/29/16 [History] Multivitamin [One Daily Essential] 1 tab PO DAILY 11/29/16 [History] Allergies/Adverse Reactions: Allergies No Known Allergies Allergy (Verified 11/28/16 19:14) Date of admission: 11/29/16 00:01 Primary care physician: PCP NO Consults: 11/29/16 01:16 Consult to Palliative Care [CONS] Routine Comment: Consulting Provider: Palliative Care Natalia Reason for Consult: Pt is persuing hospice Call Completed: No Discharging clinician: Luz Marina Perez Anticipated date of discharge: 11/29/16 - Patient Status Disposition: Hospice - Medical Facility Condition: Critical Functional capacity at discharge: bed bound Overall status at discharge: patient is not back to baseline - Discharge Instructions Follow Up With: NO,PCP [Primary Care Provider] - Forms: ED Satisfaction Letter Hospital course: Mr. Nj is a 81 year old male shelter resident with history of dementia, who was brought in due to altered mental status. Patient was noted to be in respiratory distress in the emergency room and was noted to have bilateral multifocal pneumonia, possibly aspiration on chest x-ray. He was intubated due to worsening respiratory failure. However, patient's family arrived and reported that patient is DNR/DNI and requested for extubation, which has been done. Patient is noted to be in severe sepsis with lactic acidosis, leukocytosis, acute kidney injury and elevated troponin. Patient's family has declined IV antibiotics, IV hydration and any other forms of definitive treatment at this time. Palliative care has been consulted and patient is currently being transitioned to inpatient hospice for palliative/ comfort care. - Time Spent with Patient Total time spent providing and/or coordinating discharge services: Greater than 30 minutes (40 min) - Constitutional Vitals: Temp Pulse Resp BP Pulse Ox 96.9 F L 84 8 74/47 81 11/29/16 00:55 11/29/16 00:55 11/29/16 00:55 11/29/16 00:55 11/29/16 00:55 General appearance: Present: A&O X 0 (comatose, unresponsive) - Respiratory Respiratory exam: Present: rales (B/L coarse breath sounds and diffuse rales). Absent: accessory muscle use, rhonchi, wheezes - Cardiovascular Cardiovascular exam: Present: RRR, +S1, +S2. Absent: diastolic murmur, gallop, rubs, systolic murmur - VTE Reasons for not Prescribing Prophylaxis: Refused by patient
[2016-11-29] MEDS ORDERED: Cefepime HCl 2,000 MG in D5% in Water (Mini-Bag+) 100 ML IVPB ONE (19:47)
== END 2016-11-29 09:48 | disposition hospice, inpatient (51) ==
LOC: 2ANU 19:11 → EMEROO 19:11 → SUATTDRO 11-29 00:01 → 2ANU 11-29 00:28
PROVIDERS: ADMIT Internal Medicine; ATTEND Internal Medicine

== ENCOUNTER 2016-11-29 09:33 | Inpatient (IN) ==
[2016-11-29] MEDS ORDERED: Acetaminophen 650 MG RECTAL SUPP RC PRN (09:36)
[2016-11-29] MEDS ORDERED: *HR* LORazepam Oral Conc 2 MG/ML PO PRN (09:36)
[2016-11-29] MEDS ORDERED: OxyCODONE CONC 5 MG/0.25 ML ORAL.SYG PO PRN (09:36)
[2016-11-29] MEDS ORDERED: Ondansetron 4 MG/2 ML VIAL IVP PRN (09:36)
[2016-11-29] MEDS ORDERED: Scopolamine Patch 1.5 MG PATCH.TD72 TD SCH (09:45)
--- NOTE | 2016-11-29 10:47 | Pallative History & Physical ---
<David Ibarra M - Last Filed: 11/29/16 10:51> Date of Encounter: 11/29/16 Time of Encounter: 09:50 Assessment and Plan (1) Goals of care, counseling/discussion Current visit: No Status: Acute Patient's CODE STATUS is DNR CC. Patient was terminally extubated in the emergency department. Family's initial impression was that patient would have minutes to hours to live. Patient has exceeded these expectations but the family's understanding of disease process has been addressed and they understand that he may even stabilize. Goals of care at this time are to keep the patient comfortable until he passes. The patient will be transitioned over to inpatient hospice. (2) Respiratory failure Current visit: No Status: Acute Multifocal pneumonia with comfort care treatment and no plans for antibiotics, fluids, or other intervention per family wishes. Pt comfortable at this time. Qualifiers: Chronicity: acute Respiratory failure complication: hypoxia Qualified Code(s): J96.01 - Acute respiratory failure with hypoxia Internal Medicine - H&P: HPI Chief complaint: altered mental status Admitted From: Intrahospital Transfer History of present illness: Patient is an 81-year-old male who was admitted overnight to the hospitalist service. Patient presented from a detention to the emergency department with fever, altered mental status, respiratory distress. Patient is minimally responsive when he presented to the ER with chest x-ray concerning for pneumonia. Patient underwent intubation. Patient's guardian /family arrived and discussed wish for comfort care. It appears that significant conversations were had and it was decided the patient was to be terminally extubated. Currently the patient is resting in bed minimally responsive with occasional apneic episodes. Discussed overall course with family. They would like to have the patient admitted to hospice service. They do not want interventions including antibiotics or fluids. Past Med Surg Social Fam HX - Past Medical History Medical history: diabetes, hyperlipidemia, hypertension, myocardial infarction Psychiatric history: no psych history - Social History Smoking Status: Unknown if ever smoked Smokeless Tobacco Status: No Alcohol use: unknown Drug use: unknown Internal Medicine - H&P: Meds Aspirin 81 mg PO DAILY 11/29/16 [History] Cyclosporine [Restasis] 1 drop BOTH EYES BID 11/29/16 [History] Docusate [Colace] 100 mg PO BID 11/29/16 [History] Erythromycin OPTH Oint 1 appl BOTH EYES TID 11/29/16 [History] Folic Acid 1 mg PO DAILY 11/29/16 [History] Furosemide [Lasix] 20 mg PO DAILY 11/29/16 [History] Loratadine [Allergy Relief] 10 mg PO DAILY 11/29/16 [History] Multivitamin [One Daily Essential] 1 tab PO DAILY 11/29/16 [History] Allergies No Known Allergies Allergy (Verified 11/28/16 19:14) ROS unobtainable: due to mental status Palliative Care-Exam - Constitutional Exam: General: Patient decreased respirations, overly rhonchorous breath sounds. Occasional episodes of apnea. Minimally responsive. Head: atraumatic, normocephalic HEENT: Dry mucous membranes Cardiovascular: Regular rate and rhythm. No murmurs rubs or gallops. Respiratory diffuse rhonchorous breath sounds, wheezing, rales. Abdomen: Soft nontender palpation, no guarding, no rebound Extremities: No edema, no deformities, no mottling Skin: No mottling, cool, dry, no evidence of rash or abrasion. Neuro: Eyes closed, no response to mild painful stimuli. Palliative Quality Palliative Quality: Screen for Code Status: Yes, Screen for Goals of Care: Yes, Screen for Pain: Yes, If Pain Regimen Started, Initiate Bowel Regimen: Yes, Screen for Nausea/Vomitting: Yes Code Status: 11/29/16 09:36 Resuscitation Status: Active [RES] Stat Comment: Resuscitation Status: DNR-Comfort Care <Pal Kessler - Last Filed: 11/29/16 11:21> Date of Encounter: 11/29/16 Internal Medicine - H&P: HPI History of present illness: Mr. Nj is a 81 year old male Palliative Care-Exam - Constitutional Vitals: Temp Pulse Resp BP Pulse Ox 97.6 F 82 18 73/45 91 11/29/16 10:59 11/29/16 10:59 11/29/16 10:59 11/29/16 10:59 11/29/16 10:59 Palliative Quality Code Status: 11/29/16 09:36 Resuscitation Status: Active [RES] Stat Comment: Resuscitation Status: DNR-Comfort Care - Attending Attestation I examined this patient and my medical decision-making was reviewed with the WATER RIGHTS SPECIALIST/PA/Advanced Practice Nurse/Resident Physician. I agree with the documented findings, disposition and treatment plan as described except to the extent set forth below. d/w family they understand could last if so cannot stay on GIP indefinitely. However he does appear to be finding rapidly and I do not expect that he will last more than 48-72 hours. Patient will remain on GIP for symptomatic management of end of life secondary to acute infection and end-stage Parkinson' s disease.
--- NOTE | 2016-11-29 11:23 | Event Note ---
Date of Encounter: 11/29/16 Time of Encounter: 11:21 Hospice medical scientist certification of terminal illness: Hospice benefit. Start: 11/29/2016 Hospice benefit. In: +90 days Palliative performance scale: 10-20% History: She with respiratory failure actually was if intubated and extubated yesterday. Lengthy apneic spells. Patient has septic shock secondary to pneumonia. The patient and family do not wish to have any further aggressive care. The patient is hypotensive tachycardia tachycardic, has increased white count with a marked left shift as well as increased lactate levels. Without aggressive care I expect that These findings support a life expectancy of 6 months or less. I attest that I have compose the above narrative based on my review of the patient's medical records, and or on my examination of the patient. Pal Kessler M.D. Associate medical record retrieval specialist. [facility]
[2016-11-29] MEDS: *HR* LORazepam 2 MG/ML VIAL IVP PRN ×2 (18:28→22:48)
[2016-11-29] MEDS: *HR* HYDROmorphone (PF) 1 MG/ML SYRINGE IVP PRN ×2 (18:28→22:48)
[2016-11-29] MEDS: Bisacodyl 10 MG RECTAL SUPPOSITORY RC SCH (20:44)
[2016-11-30] MEDS: *HR* HYDROmorphone (PF) 1 MG/ML SYRINGE IVP PRN ×4 (03:20→15:28)
[2016-11-30] MEDS: *HR* LORazepam 2 MG/ML VIAL IVP PRN ×2 (03:21→10:20)
[2016-11-30] MEDS: Atropine Sulfate 1% 40 DROP/2 ML BOTTLE SL PRN ×3 (08:07→10:26)
--- NOTE | 2016-11-30 10:51 | Palliative - Consult Note ---
Date of Encounter: 11/30/16 Time of Encounter: 10:48 - Assessment and Plan (1) Dyspnea Current Visit: Yes Status: Acute Assessment and plan: Increase in respiratory effort with audible wheezing noted. Educated family on treatment for dyspnea and terminal secretions. We will increase the dose of hydromorphone as it does not appear to be improving with respiratory symptoms. Discussed risks/benefits/indications and plan of care with the patient's family. Turn and reposition for comfort. Limit the amount of aggressive deep oral suctioning for comfort. Qualifiers: Dyspnea type: unspecified Qualified Code(s): R06.00 - Dyspnea, unspecified (2) Airway clearance impairment Current Visit: Yes Status: Acute Assessment and plan: Scopolamine patch in place, atropine drops as needed. Discussed the use of glycopyrrolate for increasing terminal secretions. Patient's family educated on risks/benefits. Family respectfully declines the use of glycopyrrolate. Discussed with nursing staff. Caution with aggressive oral suctioning. (3) Anxiety Current Visit: Yes Status: Acute Assessment and plan: Lorazepam 0.5 mg every 2 hours as needed. Discussed plan of care with the patient's family and primary nurse. (4) Respiratory failure Current Visit: Yes Status: Acute Qualifiers: Chronicity: acute Respiratory failure complication: hypoxia Qualified Code(s): J96.01 - Acute respiratory failure with hypoxia (5) Pneumonia Current Visit: Yes Status: Acute Assessment and plan: Discussed pathophysiology behind multifocal pneumonia. As well as buildup of secretions in airway contributing to terminal secretions in impaired airway clearance. Qualifiers: Pneumonia type: due to other aerobic Gram-negative bacteria Laterality: bilateral Lung location: unspecified part of lung Qualified Code(s): J15.6 - Pneumonia due to other aerobic Gram-negative bacteria (6) Goals of care, counseling/discussion Current Visit: No Status: Acute Assessment and plan: Mr. cox is admitted under general inpatient hospice care for symptom management including dyspnea and terminal secretions. Medications adjusted today according to symptomatology. The patient is currently receiving a level of care that he would be unable to receive outside of the general inpatient hospice setting. We will continue to titrate medications for comfort. Given his rapid decline in health and current physical examination, he is not expected to survive long. Discussed plan of care with the family as well as primary nurse and hospice nurse. Palliative-CN HPI - Data of Consult Patient: known to practice within the last 3 years Consult date: 11/30/16 Requesting Physician: Pal Kessler MD - Consult Narrative Palliative Care/Comfort Measures: Palliative care Reason for consult: Symptom management History of present illness: Mr. Cox is a 81 year old male with a history of Lewy body dementia transferred to [facility] from local [facility] where he currently resides. He was transferred for a fever and altered mental status. Mr. cox was minimally responsive in the emergency department and was placed on mechanical ventilation. After the family and guardian arrived, the decision was made compassionately extubate and focus on comfort measures only. He was transitioned to general inpatient hospice care for intensive symptom management including dyspnea and impaired airway clearance/secretions. Currently, the patient is unresponsive with family at bedside. Respirations are labored with increasing amounts of airway secretions. The palliative care team was consulted to assist with symptom management during general inpatient hospice stay. CC: Pal Kessler MD Past Med Surg Social Fam HX - Past Medical History Source: old records reviewed Medical history: dementia, diabetes, hyperlipidemia, hypertension, myocardial infarction, other Psychiatric history: no psych history - Past Surgical History Surgical History: other (hemerrhoidectomy) - Social History Smoking Status: Unknown if ever smoked Smokeless Tobacco Status: No Alcohol use: unknown Drug use: unknown Current living situation: [facility] Activity Level: Bed bound Medications and Allergies Aspirin 81 mg PO DAILY 11/29/16 [History] Cyclosporine [Restasis] 1 drop BOTH EYES BID 11/29/16 [History] Docusate [Colace] 100 mg PO BID 11/29/16 [History] Erythromycin OPTH Oint 1 appl BOTH EYES TID 11/29/16 [History] Folic Acid 1 mg PO DAILY 11/29/16 [History] Furosemide [Lasix] 20 mg PO DAILY 11/29/16 [History] Loratadine [Allergy Relief] 10 mg PO DAILY 11/29/16 [History] Multivitamin [One Daily Essential] 1 tab PO DAILY 11/29/16 [History] Allergies No Known Allergies Allergy (Verified 11/28/16 19:14) ROS unobtainable: due to mental status Palliative Care-Exam - Constitutional Vitals: Temp Pulse Resp BP Pulse Ox 99.7 F H 91 18 94/59 90 11/29/16 20:44 11/29/16 20:44 11/29/16 20:44 11/29/16 20:44 11/29/16 20:44 Exam: 81 year old male, unresponsive, audible rhonchi, family at bedside - Eye Pupils: Present: PERRL - ENT ENT exam: Present: mucous membranes dry - Respiratory Respiratory exam: Present: accessory muscle use, respiratory distress (mild), rhonchi, tachypnea (rate 30) Additional comments: coarse rhonchi and terminal secretions - Expanded Respiratory Exam Location: rhonchi: Left, Right, Upper, Lower - Cardiovascular Additional comments: apical heart tones obscured by lung sounds - GI/Abdominal Exam GI/Abdominal exam: Present: firm. Absent: guarding, tenderness - Catheter Type: Urethral (Fernandez) (dark tea colored urine) - Extremities Exam Extremities exam: Present: pedal edema (mild) - Expanded Upper Extremities Exam Hand wrist exam: Present: swelling - Neurological Exam Neurological exam: Absent: alert - Psychiatric Psychiatric exam: Absent: agitated, anxious - Skin Skin exam: Present: dry, warm. Absent: mottled Palliative Quality Palliative Quality: Screen for Code Status: Yes, Screen for Goals of Care: Yes, Screen for Pain: Yes, If Pain Regimen Started, Initiate Bowel Regimen: Yes, Screen for Nausea/Vomitting: Yes Code Status: 11/29/16 09:36 Resuscitation Status: Active [RES] Stat Comment: Resuscitation Status: DNR-Comfort Care
[2016-11-30] MEDS: *HR* HYDROmorphone (PF) 1 MG/ML SYRINGE IVP SCH ×2 (12:32→18:14)
[2016-11-30] MEDS: Bisacodyl 10 MG RECTAL SUPPOSITORY RC SCH (22:40)
[2016-12-01] MEDS: *HR* HYDROmorphone (PF) 1 MG/ML SYRINGE IVP SCH ×4 (00:04→17:00)
--- NOTE | 2016-12-01 09:25 | Electrocardiograph Report ---
[place] [id number] Test Date: 2016-11-28 Pat Name: Edis Nj Department: 105 Room: 2A Gender: M Wedding Consultant: : 1935 Requested By: Pal Kessler Order Number: [id number] Reading MD: Andressa Campbell Measurements Intervals [place] Rate: 92 P: 9 MT: 192 QRS: -51 QRSD: 117 T: 68 QT: 350 QTc: 400 Interpretive Statements SINUS RHYTHM LEFT AXIS DEVIATION INTRAVENTRICULAR CONDUCTION DELAY NONSPECIFIC T-WAVE ABNORMALITY Electronically Signed On 12-01-2016 9:24:20 EDT by Andressa Campbell
[2016-12-01] MEDS ORDERED: *HR* Morphine 2 MG/ML SYRINGE IVP ONE (10:05)
--- NOTE | 2016-12-01 10:09 | Palliative Progress Note ---
Date of Encounter: 12/01/16 Time of Encounter: 10:06 - Assessment and plan (1) Dyspnea Current Visit: Yes Status: Acute Assessment and plan: Scheduled hydromorphone yeterday, he required only one PRN dose for breakthrough. Family has concerns of increased work of breathing that does not appear to be responding as well as he did a few days ago. One time dose of Morphine to evaluate response. Adjust accordingly. Qualifiers: Dyspnea type: unspecified Qualified Code(s): R06.00 - Dyspnea, unspecified (2) Airway clearance impairment Current Visit: Yes Status: Acute Assessment and plan: Patient remains with coarse audible rhonchi and impaired airway clearance. Discussed management of terminal secretions. Family continues to decline Robinul. Gentle oral suction as needed. Position for comfort. (3) Anxiety Current Visit: Yes Status: Acute Assessment and plan: Lorazepam as needed for anxiety/agitation. Mr. Nj has used 2 doses in the past 24 hours. Recommend using prior to turning and repositioning. (4) Respiratory failure Current Visit: Yes Status: Acute Qualifiers: Chronicity: acute Respiratory failure complication: hypoxia Qualified Code(s): J96.01 - Acute respiratory failure with hypoxia (5) Pneumonia Current Visit: Yes Status: Acute Qualifiers: Pneumonia type: due to other aerobic Gram-negative bacteria Laterality: bilateral Lung location: unspecified part of lung Qualified Code(s): J15.6 - Pneumonia due to other aerobic Gram-negative bacteria (6) Goals of care, counseling/discussion Current Visit: No Status: Acute Assessment and plan: Mr. Nj continues to be under general in-patient hospice status for symptom management. His care is at a level that cannot be provided at home. Given his rapid decline in health and current physical condition, he is not expected to survive long. (7) Decubitus ulcer of left heel, unstageable Current Visit: Yes Status: Acute Assessment and plan: Deep tissue injury noted to the left heel. Large intact bulla noted to the left heel. Family aware of the causes and continue to request him not be turned due to the increase in respiratory secretions. Continue to elevate heels and skin care. - Time Spent With Patient Total time spent is greater than 50% in coordination of care (as documented) at patient's floor/unit and/or counseling patient: - Subjective Interval history: Mr. Nj is lying in bed, course audible rhonchi noted. Family at bedside. Patient has utilized one additional dose of hydromorphone outside of the regularly scheduled medications. Family has some concerns that he is not responding as well to medications. Discuss plan of care. Family continues to decline turning and repositioning. Patient has developed deep tissue injury to the left heel. Elevated temperature noted last night with T max at 100.2. Discussed plan of care with family. Comfort measures and cool wash cloths only. - Constitutional General appearance: Absent: cooperative Exam: 81 year old male, unresponsive, audible coarse rhonchi with grunting respirations. - ENT ENT exam: Present: mucous membranes moist - Expanded ENT Exam Mouth exam: Present: drooling - Respiratory Respiratory exam: Present: accessory muscle use, respiratory distress (grunting respirations), rhonchi, tachypnea - Cardiovascular Additional comments: heart tones obscured by lung sounds. Pulse slightly irregular. - GI/Abdominal GI/Abdominal exam: Present: firm. Absent: guarding, tenderness - Extremities Exam Additional comments: large bulla noted to left heel, bilateral toes mottled - Expanded Upper Extremity Exam Hand wrist exam: Present: swelling (mottling noted to bilateral hands. ) - Neurological Exam Neurological exam: Absent: alert Additional comments: unresponsive. - Psychiatric Psychiatric exam: Absent: agitated, anxious - Skin Skin exam: Present: mottled (to bilateral hands and feet) Palliative Quality Palliative Quality: Screen for Code Status: Yes, Screen for Goals of Care: Yes, Screen for Pain: Yes, If Pain Regimen Started, Initiate Bowel Regimen: Yes, Screen for Nausea/Vomitting: Yes Code Status: 11/29/16 09:36 Resuscitation Status: Active [RES] Stat Comment: Resuscitation Status: DNR-Comfort Care
[2016-12-01] MEDS: *HR* HYDROmorphone (PF) 1 MG/ML SYRINGE IVP PRN ×4 (13:19→20:26)
[2016-12-01] MEDS: Bisacodyl 10 MG RECTAL SUPPOSITORY RC SCH (20:27)
[2016-12-01 21:01] VITALS: BP 50/29
--- NOTE | 2016-12-02 07:28 | Death Note ---
Discharge Sum: Summary - Date and Time Date of admission: 11/29/16 09:58 Date of : 12/01/16 Time of : 22:31 - Summary Details: The patient came onto the general inpatient hospice service after being terminally extubated in the emergency department and admitted for pneumonia and sepsis. Family did not wish to have any further aggressive care. The patient was Esterly for symptom control and passed quietly and comfortably family present. It is unknown if the patient never smoked comorbidities were diabetes hyperlipidemia hypertension and a history of coronary artery disease. Patient also had dementia. - Additional Data Confirmation of as documented by pronouncing clinician: no pulse, no respirations, no heart sounds Family: at bedside Attending/PCP notified?: Yes Attending physician: Pal Kessler MD Was code activated?: No Autopsy requested?: No workers' compensation claims examiner notified?: No Organ bank notified?: Yes Advance directives: Yes Hospice patient?: Yes Discharge Sum: Diag - PCOD Probable Cause of : Respiratory arrest Discharge Sum: Prov - Provider Consults: 11/29/16 09:36 Consult to Palliative Care [CONS] Routine Comment: Consulting Provider: Palliative Care Natalia Reason for Consult: cross coverage on [facility] hospice pt Call Completed: Yes
== END 2016-12-02 00:15 | disposition expired | DRG 871 ==
LOC: 2ANU 09:58
PROVIDERS: ADMIT Family Medicine Hospice and Palliative Medicine; ATTEND Family Medicine Hospice and Palliative Medicine